=== PATIENT | female | born 1965 | race Caucasian/White ===

== ENCOUNTER → 2021-08-24 | Outpatient (CLI) | payer OTHER | LOC: M.RAD 08-22 14:00 | PROVIDERS: ATTEND Family Medicine | DX: Z12.31 Encounter for screening mammogram for malignant neoplasm of breast (principal) ==

== ENCOUNTER → 2021-08-29 | Outpatient (CLI) | payer OTHER ==
--- NOTE | 2021-09-07 17:07 | PATH ---
[address] [address] PATHOLOGY RPT PROCEDURE Name: PEBBLES BISHOP Room: [facility].#: [id number] Admission: 08/29/21 Date of : 61 Discharge: Report #: [id number] Path Case #: [id number] [facility] Accession Number: [id number] . 01 Material submitted: . PART A: breast - LEFT BREAST. Modifiers: left PART B: axilla - LEFT AXILLARY NODE. Modifiers: left . 01 Clinical history: . A. 2.49 X 1.61 X 2.00 CM 2:00 1 CM FROM NIPPLE B. 1.60 X 0.63 X 0.85 CM . 02 Diagnosis: A. 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 SEE COMMENT. . B. 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 SEE COMMENT. . Protocol Posting Date: May 2021 . CASE SUMMARY: (INVASIVE CARCINOMA OF THE BREAST: Biopsy) . SPECIMEN . Procedure ___ Other: Core biopsy . Specimen Laterality ___ Left . TUMOR . +Tumor Site ___ Clock position Specify Clock Position ___ 2 o'clock ___ Specify distance from nipple: 1 cm . Histologic Type ___ Invasive carcinoma of no special type (ductal) . Histologic Grade (Idalou Histologic Score) Glandular (Acinar) / Tubular Differentiation ___ Score 3 (less than 10% of tumor area forming glandular / tubular structures) [place] [address] PATHOLOGY RPT PROCEDURE Name: PEBBLES BISHOP Room: [facility]#: [id number] Admission: 08/29/21 Date of : 61 Discharge: Report #: [id number] Path Case #: [id number] ___ Score 2 (Cells larger than normal with open vesicular nuclei, visible nucleoli, and moderate variability in both size and shape) Mitotic Rate ___ Score 2 Overall Grade ___ Grade 2 (scores of 6 or 7) . +Tumor Size ___ Greatest dimension of largest invasive focus greater than 1 mm: 14 mm . Ductal Carcinoma In Situ (DCIS) ___ Not definitely identified . +Lymphovascular Invasion ___ Not identified . +Microcalcifications ___ Not identified . SPECIAL STUDIES . +Breast Biomarker Studies: Pending on A1 (JOSE:pit; 08/30/2021) QTP 08/30/2021 1430 Local . 02 Comment: At least 95% of the submitted tissues of specimen A are involved by tumor. Areas of prominent tumor necrosis could represent DCIS, comedo-type. . Specimen B shows fragmented lymphoid/lymph node tissue with multiple foci of malignancy, histologically identical to that seen in specimen A with a longest intact span of 1.8 mm. . Breast tumor profile studies are pending on A1 and will be the subject of an addendum report. Specimens A and B reviewed with Dr. Souleymane Mcgee on 08/30/2021 who agrees with the diagnosis. Pebbles (acting [facility] Breast Navigator) notified at approximately 11:45 on 08/30/2021. (JOSE:pit; 08/30/2021) . 02 Addendum: . Special studies report received from [facility], [address] [place] [address], [address], [place], [address], on case [id number], labeled with their number [id number], dated 09/04/2021. . Breast Predictive/Prognostic Marker Analysis . . Specimen Site: Left Breast Mass, 2:00 (Biopsy), [place] [address] PATHOLOGY RPT PROCEDURE Name: PEBBLES BISHOP Room: [facility] Cohn#: [id number] Admission: 08/29/21 Date of : 61 Discharge: Report #: [id number] Path Case #: [id number] Carcinoma Specimen ID #: [id number] . ER (Estrogen Receptor) Positive Percent: 95.00% Analysis: Manual Staining Intensity: Moderate to Strong Internal Control: Not Present . NJ (Progesterone Receptor) Negative Percent: 0.50% Analysis: Manual Staining Intensity: Not Applicable Internal Control: Not Present Comments: No internal controls are present, but external controls are appropriately positive. If needed, testing another specimen that contains internal controls may be warranted for confirmation of NJ status. . HER2 Positive Score: 3+ Analysis: Manual . Ki-67 Borderline Proliferation Percent: 20.00% Analysis: Manual . Time to Fixation (Cold Ischemic Time): 2 minutes Duration of Fixation: 11 hours 23 minutes Type of Fixative: 10% Neutral Buffered Formalin . at [facility]. Rene Singh M.D. Pathologist . Methodology: The HER2 Receptor protein expression is analyzed using the Glide HER2 rabbit monoclonal antibody (clone 4B5). This assay is used for diagnostic determination of the HER2 protein over-expression in paraffin embedded, formalin fixed breast cancer tissue on the Glide Benchmark. The specimen is processed using a secondary antibody-HRP conjugate detection system. The membrane staining of the tumor is determined either by manual score or image analysis. This antibody is intended for in vitro diagnostic use. The score is reported as 0, 1+, 2+, or 3+. This test [place] [address] PATHOLOGY RPT PROCEDURE Name: PEBBLES BISHOP [id number] Admission: 08/29/21 Date of : 61 Discharge: Report #: [id number] Path Case #: [id number] purposes. . A rabbit monoclonal antibody (clone SP1) that recognized the Estrogen Receptor is used to perform immunohistochemistry on routinely fixed (formalin) paraffin embedded tissue on the Glide Benchmark. The specimen is processed using a secondary antibody-HRP conjugate detection system. The percentage of stained tumor nuclei is determined either manually or by image analysis. This test is intended for in vitro diagnostic use. This test is used for clinical purposes. . A rabbit monoclonal antibody (clone 1E2) that recognized the Progesterone Receptor is used to perform immunohistochemistry on routinely fixed (formalin) paraffin embedded tissue on the Glide Benchmark. The specimen is processed using a secondary antibody-HRP conjugate detection system. The percentage of stained tumor nuclei is determined either manually or by image analysis. This test is intended for in vitro diagnostic use. This test is used for clinical purposes. . A rabbit monoclonal antibody (clone 30-9) that recognized Ki67 is used to perform immunohistochemistry on routinely fixed (formalin) paraffin embedded tissue on the Glide Benchmark. The specimen is processed using a secondary antibody-HRP conjugate detection system. The percentage of stained tumor nuclei is determined either manually or by image analysis. This test is intended for in vitro diagnostic use. This test is used for clinical purposes. . Intended Use: This antibody is intended for in vitro diagnostic (IVD) use. HER2 (4B5) is a rabbit monoclonal antibody intended for the semi-quantitative detection of HER2 antigen in sections of formalin-fixed, paraffin embedded neoplastic tissue. . This antibody is intended for in vitro diagnostic (IVD) use. Estrogen Receptor (ER) (SP1) is a rabbit monoclonal antibody (IgG) that is intended for the qualitative detection of estrogen receptor (ER) antigen in sections of formalin-fixed, paraffin-embedded tissue. ER is a rabbit monoclonal antibody that recognizes human estrogen receptor alpha. . This antibody is intended for in vitro diagnostic (IVD) use. Progesterone Receptor (NJ) (1E2) is a rabbit monoclonal antibody (IgG) that is intended for the qualitative detection of progesterone receptor (NJ) antigen in sections of formalin fixed, paraffin embedded tissue. NJ is a rabbit monoclonal antibody that recognizes the A and B forms of the human progesterone receptor. . This antibody is intended for in vitro diagnostic (IVD) use. Ki-67 (30-9) is a rabbit monoclonal antibody (IgG) directed against C-terminal portion of Ki-67 antigen. Staining for Ki-67 can be used to aid in assessing the proliferative activity of normal and neoplastic tissue. Ki-67 [place] [address] PATHOLOGY RPT PROCEDURE Name: PEBBLES BISHOP Room: [facility]#: [id number] Admission: 08/29/21 Date of : 61 Discharge: Report #: [id number] Path Case #: [id number] protein expressed in proliferating cells. During the cell cycle, the Ki-67 antigen is present in the G1, S, G2 and M phase but is absent in the G0 (quiescent phase). . Disclaimer(s): This assay has not been validated on decalcified tissues. Results should be interpreted with caution if this specimen was decalcified given the likelihood of false negativity on decalcified specimens. . Any image(s) that accompany this report is/are a customer sales representative image(s) only and should not be used to render a diagnosis. . This interpretation is contingent on the specimen and the clinical information received. . For any special tests/stains performed, known positive cells or tissues are tested with each marker and examined to ensure positivity. Positive and negative internal controls, if present, react appropriately. . This analysis is an adjunct to the evaluation of the referring physician and does not represent a final diagnosis. . The immunohistochemistry tests performed at [facility]. were validated on tissue fixed in 10% neutral buffered formalin. The performance characteristics of the tests performed on tissue processed in other fixatives is not known. . HER2 testing at [facility], [place] is performed in compliance with the 2018 updated ASCO/CAP Clinical Practice Guideline Focused Update. If the result is EQUIVOCAL (2+), it must be confirmed by an alternative assay such as FISH. . REFERENCE: Emi BERNARD, Emma FIGUEROAH, Indigo KH, et al: Human epidermal growth factor receptor 2 testing in breast cancer: ASCO/CAP clinical practice guideline focused update. Arch Pathol Lab Med. 2018;142:1518-1683. . HER2 and ER/NJ ASCO/CAP guidelines require fixation in neutral buffered formalin for a minimum of 6 and a maximum of 72 hours. Fixation times less than 6 hours may not adequately preserve cell proteins. Fixation times longer than 72 hours may cause excess cross-linking of proteins reducing the antigen available for staining. Either scenario can cause reduced staining; hence false negative results are possible and should be considered for these situations if the HER2 IHC score is less than 3+ or ER or NJ is negative (no staining or <1% positive). It is recommended that specimens fixed longer than 72 hours with HER2 IHC scores less than 3+ be confirmed by HER2 FISH. The time from biopsy/excision to fixation in formalin (cold ischemic time) must be less than 1 hour. Time to fixation (cold ischemic time) greater than 1 [place] [address] PATHOLOGY RPT PROCEDURE Name: PEBBLES BISHOP Room: [facility] Cohn#: [id number] Admission: 08/29/21 Date of : 61 Discharge: Report #: [id number] Path Case #: [id number] caution. HER2 testing, mainly HER2 by FISH, is particularly vulnerable since excessive cold ischemic time results in preferential loss of HER2 probe signals that may lead to false negative results. Use of unstained slides cut more than 6 weeks before analysis is not recommended. . ER/PgR testing at [facility]. is performed in compliance with the ASCO/CAP Clinical Practice Guidelines. If the result for ER is less than 1% it is reported as Negative; if the ER result is 1-10% it is reported as Low Positive; if the ER result is greater than 10% it is reported as Positive. If the result for PgR is less than 1% it is reported as Negative; if the PgR result is equal to or greater than 1%, it is reported as Positive. . REFERENCE: Indigo SPEAR, Emma MARRERO, Brandon M,et al. Estrogen and progesterone receptor testing in breast cancer. ASCO/CAP guideline update. Arch Pathol Lab Med. 2020;144:545-563. . . SCORE STAINING PATTERN IN TUMOR CELLS INTERPRETATION RESULTS 0 No staining observed or incomplete, faint membrane staining in less than or equal to 10% of tumor cells. Negative 1+ Incomplete, faint membrane staining in greater than 10% of tumor cells. Negative 2+ Weak to moderate complete membrane staining observed in greater than 10% of tumor cells. Equivocal* *Must be confirmed by alternative assay (IHC/FISH/Dual ORALIA) 3+ Intense, complete membrane staining in greater than 10% of tumor cells. Positive Performing Labs: This Test was performed at [facility]. at [facility], [address]. . [facility] is a business unit of [facility]. a wholly-owned subsidiary of [employer]. . A complete copy of the report is on file. . Professional and Technical services performed by [facility]. at [address] [address]. . (JOSE:amj 09/04/2021) [place] [address] PATHOLOGY RPT PROCEDURE Name: PEBBLES BISHOP Room: [facility]#: [id number] Admission: 08/29/21 Date of : 61 Discharge: Report #: [id number] Path Case #: [id number] . R/09/04/2021 Addendum Electronically Signed by Sarbjit Steiner MD, Pathologist . 02 Electronically signed: . Sarbjit Steiner MD, Pathologist NPI- [id number] . 01 Gross description: . A. The specimen is received in formalin, labeled "Pebbles Bishop, left breast mass 200 1 cm FN". Received are 3 needle cores of fibrofatty tissue measuring 1.8 x 0.6 x 0.2 cm in aggregate dimensions. The specimen is submitted entirely in cassettes A1-A3. The specimen is collected at 1115 and placed into formalin at 1117 on 08/29/2021. The specimen is removed from formalin at 2240 on 08/29/2021. The total formalin fixation time is 11 hours and 23 minutes. . B. The specimen is received in formalin, labeled "Pebbles Bishop, left axillary node". Received are 2 needle cores of white-kan tissue ranging in length from 0.5 to 0.7 cm by 0.1 cm in diameter. The specimen is submitted entirely in B1-B2. ([facility]; 08/29/2021) NRI/NRI 08/29/2021 2113 Local . 02 Pathologist provided ICD-10: C50.912, N64.1, C77.3 . 02 CPT . 129068, 511198 Specimen Comment: A courtesy copy of this report has been sent to [phone], [phone] Specimen Comment: [id number] Specimen Comment: Report sent to / DR DRISCOLL Specimen Comment: A duplicate report has been generated due to demographic updates. Performed at: [id number] [facility] [address], [place] [id number] MD Souleymane Mcgee MD Phone: [phone] Performed at: 02 [facility] [address], [place], [place] [id number] MD Sarbjit Steiner MD Phone: [phone]
== END | disposition home or self-care (01) ==
LOC: M.ULTRA 09:30
PROVIDERS: ATTEND Family Medicine
DX: C50.912 Malignant neoplasm of unspecified site of left female breast (principal); C77.3 Secondary and unspecified malignant neoplasm of axilla and upper limb lymph nodes; N64.1 Fat necrosis of breast; R92.1 Mammographic calcification found on diagnostic imaging of breast